=== PATIENT | male | born 1990 | race Caucasian/White ===

== ENCOUNTER 2021-08-07 14:22 | Outpatient (CLI) | payer BC, SELFPAY ==
--- NOTE | ~2021-08-07 | CT_ITS ---
EXAMINATION: CT sinus wo con DATE: 08/07/2021 14:37 INDICATION: Postnasal drip TECHNIQUE: Computed tomography (CT) of the paranasal sinuses was performed without intravenous contra st. The dose-length product (DLP) was 311.14 mGy-cm. Iterative reconstruction was used. COMPARISON: 05/04/2013 FINDINGS: There is normal development and pneumatization of the paranasal sinuses. There is chronic m ild mucosal thickening of the ethmoidal air cells. There is mild mucosal thickening of the right maxi llary sinus. The frontal, sphenoid, and left maxillary sinuses are clear. There is partial occlusion of the right ostiomeatal complex. The left ostiomeatal complex is patent. Visualized soft tissues are unremarkable. IMPRESSION: 1. Mild sinus disease as detailed above. Reviewed, dictated and finalized at location F. GEOLOGIST
== END 2021-08-07 14:23 | disposition home or self-care (01) ==
LOC: ANHIMG 14:26
PROVIDERS: PCP Emergency Medicine; Visit Provider Otolaryngology
DX: J32.9 Chronic sinusitis, unspecified (principal); J34.2 Deviated nasal septum; J34.3 Hypertrophy of nasal turbinates; R09.82 Postnasal drip; R51.9 Headache, unspecified; R44.8 Other symptoms and signs involving general sensations and perceptions
CPT/HCPCS: 70486

== ENCOUNTER → 2021-08-22 00:45 | Outpatient (CLI) | payer BC, SELFPAY ==
[2021-08-22 13:19] LABS: SARS-CoV-2 RNA PCR Negative
== END ==
PROVIDERS: PCP Emergency Medicine; Visit Provider Otolaryngology
DX: Z01.812 Encounter for preprocedural laboratory examination (principal); Z20.822 Contact with and (suspected) exposure to COVID-19
CPT/HCPCS: C9803; U0003; U0005

== ENCOUNTER 2021-08-25 00:35 | Day surgery (SDC) | payer BC, SELFPAY ==
[2021-08-20 10:10] VITALS: BMI 27.4
--- NOTE | 2021-08-20 10:16 | PC.NURSE ---
Report to the Outpatient Waiting Room, entrance under the green pavilion located off [facility], at time __0730_ on date _[phone]_. OR Time: ___. - You and your visitor will be asked a series of questions to screen for COVID 19 for your protection. - A mask is required within the hospital. - Only one visitor is allowed at this time. Patient visitors will be guided where to wait when not with patient. Preoperative COVID Testing Requirements: Covid test 08-22-2021 at 0820. No COVID Test needed if: (proof is required; if not received patient will have Rapid Test prior to entry) - Patient has received COVID Vaccine at least 14 days prior to procedure date or - Patient has positive COVID test result within last 90 days of surgery date. COVID Test needed if above criteria is not met If not COVID vaccinated a COVID test must be conducted within 72 hours of surgery and patient is asked to isolate self from time of testing until procedure. You will go to the [facility] for your COVID testing. The [facility] is located at the corner of [address] [facility]. You will only be called if COVID results are positive and your surgeon may reschedule your elective surgery date. Patients may have clear liquids (water, carbonated beverages, clear teas, apple juice) until 3 hours prior to surgery with a maximum of 20 ounces. - No food from midnight until time of surgery - Infants may have breast milk until 4 hours before surgery, formula 6 hours prior to surgery. - Children will be allowed to drink immediately following surgery. If applicable, please bring a bottle or sippy cup to assist with drinking. Juice, water, soda, and popsicles are readily available. For infants on formula, please bring formula the day of surgery. Pacifiers are allowed. Take the following medications with a SIP of water the morning of surgery: Medications to discontinue per physician Date to take last dose Please no make-up, nail jordanian, hairspray, perfume, deodorant, or body powder the day of surgery. No jewelry (including any body piercings) or valuables the day of surgery, leave them at home. Please take a shower or bath the night before, or the morning of, surgery with an antibacterial soap. Wear comfortable, loose fitting clothing. Children are encouraged to wear pajamas. - Jewelry must be removed prior to entering the operating room. Rings and piercings that are not removed may be cut off. - The hospital will not accept responsibility for valuables. - Please leave all valuables, including medications, at home the day of surgery. If you are going home after surgery, a licensed delivery driver assistant must drive you home. - NO public transportation without another adult. - We recommend that an adult stay with you for 24 hours following discharge. - We also recommend that you do not drive, make important decision, drink alcoholic beverages, or take any drugs that were not prescribed by your health care provider for at least 24 hours after your discharge time. For Pediatric surgeries, we recommend two adults accompany the child home (only one inside the building at this time). Follow any additional instructions given to you from your surgeon. Telephone instructions given to ___Patient___and asked if any additional questions and then verbalized understanding. Patient advised to call surgeon office or pre surgery nurse liaison [phone] if any additional questions.
--- NOTE | 2021-08-24 16:50 | PM.IMHP ---
H&P: HPI History of Present Illness Date/Time: 08/24/21 16:50 Chief Complaint: Nasal obstruction nasal congestion septal deviation inferior turbinate hypertrophy chronic sinusitis facial pain facial pressure Narrative: patient presents for planned surgical procedure. No change in symptoms no change medical history. Review of Systems Constitutional: Constitutional: Denies fatigue, Denies fever(s) and Denies lethargy Eyes: Eyes: Denies blurry vision and Denies change in vision ENT: Reports as per HPI Cardiovascular: Cardiovascular: Denies chest pain Respiratory: Respiratory: Denies cough Endocrine: Endocrine: Denies fatigue Hematologic/Lymphatic: Hematologic/Lymphatic: Denies easy bleeding, Denies easy bruising and Denies lymphadenopathy Allergic/Immunologic: Allergic/Immunologic: Denies seasonal rhinorrhea [facility] Social History Social History Smoking status: Never smoker Second hand tobacco smoke exposure: Yes Spiritual care concerns: No Meds Home Medications and Allergies Home Medications Medication Instructions Recorded Confirmed Type albuterol (refill) 90 90 mcg INHALATION BID PRN 11/01/19 08/20/21 History mcg/actuation aerosol inhaler cetirizine 10 mg capsule 10 mg PO DAILY 04/22/20 08/20/21 History Allergies Allergy/AdvReac Type Severity Reaction Status Date / Time No Known Allergies Allergy Verified 08/20/21 10:08 Exam Const: General: cooperative, healthy appearing, comfortable, well developed and alert HENMT: Head: normal to inspection, normocephalic and atraumatic Ears: hearing grossly normal bilaterally, external ears normal, TM's normal bilaterally and EAC's normal General nose exam: Normal external nose present, Normal nares present, No nasal polyps present and Other nasal findings present ( Septal deviation inferior turbinate hypertrophy) Face and sinus: normal facial exam Mouth: Yes Normal oral and palatal mucosa present, Yes lip normal, Yes tongue normal, Yes oropharynx normal and Yes moist mucous membranes Teeth and gingiva: dentition normal and gingiva normal Throat: posterior oropharynx normal, tonsils normal and uvula midline Eyes: General: appearance normal, both eyes and all related structures Periorbital: periorbital findings normal Eyelids: eyelids normal Conjunctivae: conjunctivae normal Sclera: sclerae normal Neck: Neck: normal visual inspection, full ROM and no lymphadenopathy Thyroid: thyroid normal Lymphatic: no lymphadenopathy noted Resp: Effort & Inspection: normal respiratory effort and able to speak in complete sentences Cardio: Jugular venous distension: no JVD Neuro: Cranial nerves: Yes CN's II-XII intact bilaterally Assessment and Plan Assessment and plan (1) PND (post-nasal drip): Code(s): R09.82 - Postnasal drip Status: Acute Assessment and Plan: plan is for the operating room for endoscopic assisted septoplasty inferior turbinate reduction with outfracture bilateral image guided maxillary antrostomies bilateral image guided anterior ethmoidectomies bilateral image guided frontal sinusotomies. 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 Risks of postoperative bleeding pain control need for time off work were all discussed in great great detail. Patient voiced understanding of these risks and agreed. (2) Facial pain: Code(s): R51.9 - Headache, unspecified Status: Acute (3) Facial pressure: Code(s): R44.8 - Other symptoms and signs involving general
[2021-08-25] VITALS (11 sets, daily range): BP systolic 133–164; BP diastolic 58–94; PULSE 48–83; RESP 16–18; TEMP 36.2–36.9; O2SAT 94–100
--- NOTE | 2021-08-25 07:18 | WPDHPUPDATE1 ---
History and Physical Update Update Date/Time: 08/25/21 07:18 History and Physical has been reviewed, including an updated exam of the patient. There are NO changes in the patient's condition. Risks, benefits, and alternatives have been discussed and questions answered. Patient agrees to proceed with procedure.
[2021-08-25] MEDS: ACETAMINOPHEN 500 MG TABLET 1000 MG PO (07:53)
[2021-08-25] MEDS: LACTATED RINGERS 1,000 ML 30 ML IV CONT ×2 (08:02→12:15)
--- NOTE | 2021-08-25 08:04 | P.PNAN_ITS ---
Anes - Initial Pre Proc Eval Procedure: Operation Date: 08/25/21 09:30 Proposed Procedures p Image Guided Bilateral Inferior Turbinectomy with Outfracture, Bilateral Maxillary Antrostomy, Bilateral Anterior Ethmoidectomy, Bilateral Frontal Sinusotomy, - Kelton Irwin MD s Endoscopic Septoplasty - Kelton Irwin MD Date/Time: 08/25/21 08:04 Surgeon: Kelton Irwin MD Pre Op Diagnosis: chronic sinusitis Patient Data Age: 31 Gender: M Height: 1.73 m Weight: 88 kg Allergies Allergy/AdvReac Type Severity Reaction Status Date / Time No Known Allergies Allergy Verified 08/25/21 07:31 Home Medications Medication Instructions Recorded Confirmed Type albuterol (refill) 90 90 mcg INHALATION BID PRN 11/01/19 08/25/21 History mcg/actuation aerosol inhaler cetirizine 10 mg capsule 10 mg PO DAILY 04/22/20 08/25/21 History Patient hx anesthesia problems: none Family hx anesthesia problems: none Results Review: All pre-operative results and documents have been reviewed as part of the pre-operative evaluation. [facility] Past Medical History Medical History (Updated 08/25/21 @ 08:04 by Alexis Ahumada MD) Overweight Social History Social History Smoking status: Never smoker Second hand tobacco smoke exposure: Yes Living arrangements: with family Spiritual care concerns: No Anes - Eval Final PreProcedure Day of Procedure 08/25/21 08:04 Patient weight: overweight Heart: regular rate and rhythm Lungs: clear to auscultation Airway: Mallampati scale class II Neurological: alert and oriented Last oral intake: >/= 8 hours ASA classification: II Emergent: no Anesthetic plan: proceed Anesthesia type and monitoring: general GIVS and standard monitoring Results Review: All pre-operative results and documents have been reviewed as part of the pre-operative evaluation. Informed Consent: The patient's anesthetic plan and its attendant risks and benefits were discussed with the patient/family/POA. Questions were solicited and answers provided to the satisfaction of the patient/family/POA.
[2021-08-25] MEDS: ceFAZolin 2 GM/D5W 50 ML 2 GM/50 ML BAG IVPB (10:08)
[2021-08-25] MEDS: OXYMETAZOLINE HCL 0.05% NAS 15 ML BTL (*BKC) 1 SPRAY NASAL (10:42)
[2021-08-25] MEDS: MUPIROCIN 2% OINT 22 GM TUBE 1 APPLIC EACH NARE (11:58)
[2021-08-25] MEDS: LIDO 1%/EPINEPHRINE 1:100,000 50 ML VIAL 30 ML INFILTRATE (11:59)
--- NOTE | 2021-08-25 12:26 | P.OP_ITS ---
Procedure Note - Detailed Date of Procedure 08/25/21 Pre-op Diagnosis chronic sinusitis nasal congestion nasal obstruction septal deviation turbinate hypertrophy Post-op Diagnosis same Procedure Performed 1. Endoscopic assisted septoplasty 2. Bilateral inferior turbinate submucosal resection with outfracture 3. Image guided bilateral endoscopic middle turbinectomies 4. Image guided endoscopic bilateral maxillary antrostomies 5. Image guided endoscopic bilateral anterior ethmoidectomies 6. Image guided endoscopic bilateral frontal sinusotomies Surgeon Kelton Irwin MD Anesthesia general Indications See above Findings The edematous tissue moderate on the right mild on the left septal deviation to the left corrected inferior turbinate hypertrophy corrected middle turbinates removed 2nd polypoid edema bilaterally on the lateral aspects of them as they were somewhat scarred down to the lateral nasal house bilaterally. Description of Procedure Patient identified consent verified in preop. Patient brought operating room.. Time-out performed. General anesthesia induced endotracheal tube secured image guidance initiated. Patient prepped and draped. Second time-out performed. Afrin and placed in pledgets for 5 minutes then removed. 0 degree endoscope utilized. 10 cc of 1% lidocaine with 1 100,000 parts epinephrine injected in the bilateral axilla bilateral inferior turbinates bilateral septum in the submucoperichondrial plane. Left-sided [place] incision made with a 15 blade leaving a significant L strut. Left-sided mucoperichondrial flap elevated crust over with osteotome that the septum, right-sided mucoperichondrial flap elevated anterior deviated portion of septum removed with Anmol Seo forceps Elena forceps and osteotome no perforations. This was closed with 3 interrupted 5 0 fast gut sutures. Inferior turbinates entered anteriorly with 2 mm microdebrider debrided the some mucosal plane outfractured with [place] elevator. Bilateral maxillary antrostomies created with combination straight through cut double ball tip probe and backbiter. Before the maxillary antrostomies were created was noted the bilateral middle turbinates were scarred laterally with edematous polypoid tissue which was also located throughout all of the operative sinuses right worse than left. Middle turbinates removed I was straight through cut as well as Bovie suction electrocautery cauterizing the stump is a setting of 15. Anterior ethmoidectomies performed with [place] and microdebrider image guidance utilized throughout the entire procedure. 70 degree scope 70 degree suction utilized to perform the frontal sinusotomies taking great care not to enter the anterior ethmoidal or injure the anterior. Frontal sinusotomies performed with combination October Hosemann punch 70 degree scope 70 suction. Following the procedure Afrin-soaked pledgets placed the bilateral middle meati I insuring adequate hemostasis bilateral nasal passages suction the choana. Christina splints placed sutured anteriorly using 3-0 mattress nylon suture. This marked the end of the procedure. I performed all dictated portions. Care the patient turned over to Anesthesiology. Total blood loss approximately 25-50 cc. Estimated Blood Loss 25 Packing No Pathology none sent Complications No immediate complications Condition stable Disposition PACU
[2021-08-25] MEDS: oxyCODONE HCL (*CRX) 5 MG TAB IR PO (14:25)
== END 2021-08-25 15:50 | disposition home or self-care (01) ==
PROVIDERS: PCP Emergency Medicine; Visit Provider Otolaryngology
PROC: (CPT 31256; principal; 2021-08-25 09:30)
PROC: (CPT 30520; 2021-08-25 09:30)
DX: J32.9 Chronic sinusitis, unspecified (principal); J34.2 Deviated nasal septum; J34.3 Hypertrophy of nasal turbinates; R09.81 Nasal congestion; J33.9 Nasal polyp, unspecified; R51.9 Headache, unspecified; R09.82 Postnasal drip; R44.8 Other symptoms and signs involving general sensations and perceptions; J34.89 Other specified disorders of nose and nasal sinuses; Z79.51 Long term (current) use of inhaled steroids
CPT/HCPCS: 31256; 30999; 31254; 31276; 61782; 30140; 30520; A9270; J0330; J0690; J1100; J1170; J2250; J2405; J2704; J3010; J7120